=== PATIENT | male | born 1960 | race Two or more races ===

== ENCOUNTER 2017-06-30 12:53 | Emergency (ER) | payer MEDICAID ==
[~2017-06-30 12:53] MED LIST: PANTOPRAZOLE SODIUM 40 MG TAB PO SCH
[2017-06-30 13:01] VITALS: TEMP 98.1
[2017-06-30 14:16] LABS: % IMMATURE GRANULYOCYTES 0.4 % (0.0-1.1); ABSOLUTE IMMATURE GRANULOCYTES 0.03 10^3/uL (0.00-0.10); ADD DIFF? NO; ADD MORPH? NO; ADD SCAN? NO; ATYPICAL LYMPHOCYTE FLAG 0 (0-99); FRAGMENT RBC FLAG 0 (0-99); HEMATOCRIT 47.9 % (40.0-51.0); LEFT SHIFT FLG 0 (0-99); LIPEMIA HEMOLYSIS FLAG 80 (0-99); MEAN CELL HEMOGLOBIN 33.5 pg (27.9-34.1); MEAN CELL HEMOGLOBIN CONCENTR. 33.4 g/dL (32.4-36.7); MEAN CELL VOLUME 100.4 fL (81.5-99.8); MEAN PLATELET VOLUME 11.1 fL (8.7-11.7); PLATELET CLUMPS FLAG 0 (0-99); PLATELET COUNT 272 10^3/uL (150-400); RED BLOOD CELL COUNT 4.77 10^6/uL (4.40-6.38); RED CELL DISTRIBUTION WIDTH 11.5 % (11.5-15.2)
--- NOTE | 2017-06-30 14:16 | EDPHY ---
H & P Stated Complaint: "My insides are messed up" x several weeks;n/v/abd pain Time Seen by Provider: 06/30/17 14:00 HPI/ROS: CHIEF COMPLAINT: "My insides are messed up" HISTORY OF PRESENT ILLNESS: 57-year-old homeless male arrives via private vehicle complaining of 3 weeks of intermittent epigastric, left upper quadrant, left-sided chest discomfort. Will intermittently experience vomiting. No diarrhea. No melena or hematochezia. No untreated water sources. Currently asymptomatic. no dyspnea. Not associated with exertion. No history of malignancy. No history of mobilization. No hemoptysis. No cough. No dyspnea PRIMARY CARE PROVIDER: none REVIEW OF SYSTEMS: A ten point review of systems was performed and is negative with the exception of the items mentioned in the HPI PAST MEDICAL & SURGICAL HISTORY: History of inguinal herniorrhaphy. Otherwise no history of abdominal surgeries SOCIAL HISTORY: No chronic alcohol use. No cocaine use. Lives in his car. PHYSICAL EXAM (Prior to examination, patient consented to physical exam, hands were washed and my usual and customary physical exam procedures followed) 1) GENERAL: Well-developed, well-nourished, alert and oriented. Appears to be in no acute distress. 2) HEAD: Normocephalic, atraumatic 3) HEENT: Pupils equal, round, reactive to light bilaterally. Sclera anicteric. Nasopharynx, oropharynx, clear, no lesions. Ears bilaterally with normal tympanic membranes. 4) NECK: Full range of motion, no meningeal signs. No bruit 5) LUNGS: Clear auscultation bilaterally, no wheezes, no rhonchi, no retractions. 6) HEART: Regular rate and rhythm, no murmur, no heave, no gallop. 7) ABDOMEN: No guarding, no rebound, no focal tenderness, negative McBurney's, negative Clayton's, negative Rovsing's, negative peritoneal sign, 8) MUSCULOSKELETAL: Moving all extremities, no focal areas of tenderness, no obvious trauma. No peripheral edema or discoloration. 9) BACK: No CVA tenderness, no midline vertebral tenderness, no fluctuance, no step-off, no obvious trauma, no visual or palpable abnormality. 10) SKIN: No rash, no petechiae. 11) Psychiatric: Patient is oriented X 3, there is no agitation. DIFFERENTIAL DIAGNOSIS: In no particular order, including but not limited to biliary colic, cholecystitis, peptic ulcer disease, pancreatitis, and gastroenteritis, pulmonary embolus. This is a partial list of diagnoses considered. These considerations are based on history, physical exam, past history and reassessment. - Personal History Current Tetanus Diphtheria and Acellular Pertussis (TDAP): Unsure - Medical/Surgical History Other PMH: denies - Social History Smoking Status: Former smoker Constitutional: Initial Vital Signs Temperature (C) 36.7 C 06/30/17 12:58 Heart Rate 67 06/30/17 12:58 Respiratory Rate 18 06/30/17 12:58 Blood Pressure 124/93 H 06/30/17 12:58 O2 Sat (%) 96 06/30/17 12:58 O2 Delivery Mode Room Air Allergies/Adverse Reactions: No Known Allergies Allergy (Unverified 06/30/17 13:01) Home Medications: Medication Instructions Recorded Pantoprazole Sodium [Protonix 40mg 40 mg PO DAILY #30 tab 06/30/17 (RX)] Medical Decision Making - Diagnostics Imaging Results: Imaging Impressions Chest X-Ray 06/30/17 14:11 Impression: 1. Lung hyperexpansion, with no focal infiltrate. 2. Sigmoid-shaped thoracolumbar scoliosis. Images reviewed myself ED Course/Re-evaluation: 2:15 p.m.: I have evaluated this patient. Plan will be diagnostic laboratory studies, EKG. Intermediate pretest probability for pulmonary embolus. Will obtain D-dimer and further evaluate. 3:39 p.m.: Re-evaluation. He is sleeping. Easily woken. States that he is pain free. States that she is asymptomatic. I discussed his diagnostic results including normal D-dimer, negative chest x-ray, normal troponin, normal lipase, normal LFTs. I re-examined the patient. He has no focal areas of tenderness at this time. Discussed possibilities for his abdominal pain. I think that acute surgical abdominal pathology less than likely. I think that [place] , pulmonary embolus is less than likely in the presence of normal troponin, sinus rhythm on EKG, normal D-dimer. Do not think that further diagnostic studies are indicated at this time. we discussed possibility of acute gastritis. He remained asymptomatic. Will not provide GI cocktail as he is asymptomatic. I am starting the patient on proton pump inhibitor. We discussed my usual and customary dietary precautions and instructions. He feels comfortable being discharged. I recommend he follow up with primary care and with Gastroenterology. - Data Points Laboratory Results: Laboratory Results 06/30/17 14:08 06/30/17 14:08 06/30/17 06/30/17 06/30/17 14:08 14:08 14:08 WBC 7.57 10^3/uL 10^3/uL (3.80-9.50) RBC 4.77 10^6/uL 10^6/uL (4.40-6.38) Hgb 16.0 g/dL g/dL (13.7-17.5) Hct 47.9 % % (40.0-51.0) MCV 100.4 fL H fL (81.5-99.8) MCH 33.5 pg pg (27.9-34.1) MCHC 33.4 g/dL g/dL (32.4-36.7) RDW 11.5 % % (11.5-15.2) Plt Count 272 10^3/uL 10^3/uL (150-400) MPV 11.1 fL fL (8.7-11.7) Neut % (Auto) 70.2 % % (39.3-74.2) Lymph % (Auto) 21.1 % % (15.0-45.0) [place] % (Auto) 7.4 % % (4.5-13.0) Eos % (Auto) 0.4 % L % (0.6-7.6) Baso % (Auto) 0.5 % % (0.3-1.7) Nucleat RBC Rel Count 0.0 % % (0.0-0.2) Absolute Neuts (auto) 5.31 10^3/uL 10^3/uL (1.70-6.50) Absolute Lymphs (auto) 1.60 10^3/uL 10^3/uL (1.00-3.00) Absolute Monos (auto) 0.56 10^3/uL 10^3/uL (0.30-0.80) Absolute Eos (auto) 0.03 10^3/uL 10^3/uL (0.03-0.40) Absolute Basos (auto) 0.04 10^3/uL 10^3/uL (0.02-0.10) Absolute Nucleated RBC 0.00 10^3/uL 10^3/uL (0-0.01) Immature Gran % 0.4 % % (0.0-1.1) Immature Gran # 0.03 10^3/uL 10^3/uL (0.00-0.10) D-Dimer 0.27 ug/mLFEU ug/mLFEU (0.00-0.50) Sodium 141 mEq/L mEq/L (134-144) Potassium 3.9 mEq/L mEq/L (3.5-5.2) Chloride 98 mEq/L mEq/L (97-110) Carbon Dioxide 28 mEq/l mEq/l (22-31) Anion Gap 15 mEq/L mEq/L (8-16) BUN 13 mg/dL mg/dL (7-23) Creatinine 0.9 mg/dL mg/dL (0.7-1.3) Estimated GFR > 60 Glucose 105 mg/dL H mg/dL (70-100) Calcium 10.7 mg/dL H mg/dL (8.5-10.4) Phosphorus 3.7 mg/dL mg/dL (2.5-4.5) Total Bilirubin 1.0 mg/dL mg/dL (0.1-1.4) Conjugated Bilirubin 0.3 mg/dL mg/dL (0.0-0.5) Unconjugated Bilirubin 0.7 mg/dL mg/dL (0.0-1.1) AST 21 IU/L IU/L (17-59) ALT 38 IU/L IU/L (21-72) Alkaline Phosphatase 61 IU/L IU/L (38-126) Troponin I 0.017 ng/mL ng/mL (0.000-0.034) Total Protein 8.4 g/dL H g/dL (6.3-8.2) Albumin 4.8 g/dL g/dL (3.5-5.0) Lipase 234 IU/L IU/L (23-300) Departure - Departure Disposition: Home, Routine, Self-Care Clinical Impression: Abdominal pain Qualifiers: Abdominal location: epigastric Qualified Code(s): R10.13 - Epigastric pain Condition: Good Instructions: Acute Abdominal Pain (ED) Additional Instructions: Seek immediate medical attention if you develop new or worsening symptoms, if you develop fevers, chills, inability to tolerate oral intake or any other symptoms that concerns you. Referrals: [facility],. [Clinic] - As per Instructions Prescriptions: Pantoprazole Sodium [Protonix 40mg (RX)] 40 mg PO DAILY #30 tab
--- NOTE | 2017-06-30 14:20 | CPEKG ---
Heart Rate: 57 RR Interval: 1053 P-R Interval: 107 QRSD Interval: 84 QT Interval: 432 QTC Interval: 421 P [place]: 0 QRS [place]: 80 T Wave [place]: 72 EKG Severity - BORDERLINE ECG - EKG Impression: SINUS RHYTHM EKG Impression: SHORT MD INTERVAL, ACCELERATED AV CONDUCTION Electronically Signed By: Aby Wayne 30-Jun-2017 20:26:28
[2017-06-30 14:31] LABS: ALANINE AMINOTRANSFERASE 38 IU/L (21-72); ALBUMIN 4.8 g/dL (3.5-5.0); ALKALINE PHOSPHATASE 61 IU/L (38-126); ANION GAP 15 mEq/L (8-16); ASPARTATE AMINOTRANSFERASE 21 IU/L (17-59); BILIRUBIN-CONJUGATED 0.3 mg/dL (0.0-0.5); BILIRUBIN-UNCONJUGATED 0.7 mg/dL (0.0-1.1); CALCIUM 10.7 mg/dL (8.5-10.4); CARBON DIOXIDE 28 mEq/l (22-31); CHLORIDE 98 mEq/L (97-110); CREATININE 0.9 mg/dL (0.7-1.3); GLOMERULAR FILTRATION RATE > 60; GLUCOSE 105 mg/dL (70-100); POTASSIUM 3.9 mEq/L (3.5-5.2); SODIUM 141 mEq/L (134-144); TOTAL PROTEIN 8.4 g/dL (6.3-8.2)
[2017-06-30 14:42] LABS: TROPONIN I 0.017 ng/mL (0.000-0.034)
[2017-06-30 16:18] VITALS: BP 171/98; PULSE 50; RESP 16; O2SAT 97
== END 2017-06-30 16:17 | disposition home or self-care (01) ==
DX: R10.13 Epigastric pain (principal); Z87.891 Personal history of nicotine dependence